=== PATIENT | female | born 2000 | race Caucasian/White ===

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

== ENCOUNTER 2021-06-06 19:26 | Emergency (ER) | payer SELFPAY ==
[~2021-06-06] VITALS: Ht 149.9 cm; Wt 41.7 kg
[2021-06-06 20:19] VITALS: BP 158/72
[2021-06-06] MEDS ORDERED: PRED20TA5 PO (22:13)
[2021-06-06] MEDS ORDERED: DIPH25TA53 PO (22:13)
[2021-06-06 22:19] VITALS: BP 158/72
--- NOTE | 2021-06-06 22:23 | NUR ---
Patient discharged with v/s stable. Written and verbal after care instructions given and explained. Patient alert, oriented and verbalized understanding of instructions. Ambulatory with steady gait. All questions addressed prior to discharge. ID band removed. Patient advised to follow up with PMD. Rx of DIPHENHYDRAMINE PREDISONE given. Patient educated on indication of medication including possible reaction and side effects. Opportunity to ask questions provided and answered.
== END 2021-06-06 22:23 | disposition home or self-care (01) ==
LOC: MED 19:26
DX: B08.1 Molluscum contagiosum (principal); F12.10 Cannabis abuse, uncomplicated
CPT/HCPCS: 81002; 81025; 99283

== ENCOUNTER 2021-07-14 20:20 | Emergency (ER) | payer MEDICAID ==
[~2021-07-14] VITALS: Ht 149.9 cm; Wt 44.5 kg
[~2021-07-14 20:20] MED LIST: DIPH25TA53 PO; PRED20TA5 PO
[2021-07-14 20:45] VITALS: BP 134/68
[2021-07-14] MEDS ORDERED: ALBUTEROL SULFATE/IPRATROPIU 3 ML SOL IH ONE (22:20)
--- NOTE | 2021-07-14 23:08 | NUR ---
PATIENT AMBULATED TO THE BATHROOM FOR URINE COLLECTION
[2021-07-14] MEDS ORDERED: predniSONE 20 MG TAB PO ONE (23:20)
[2021-07-15] MEDS ORDERED: PRED20TA5 PO (00:34)
[2021-07-15] MEDS ORDERED: ALBU-118 INH (00:34)
[2021-07-15 00:58] VITALS: BP 134/68
--- NOTE | 2021-07-15 00:58 | NUR ---
Patient discharged with v/s stable. Written and verbal after care instructions given and explained. Patient verbalized understanding. Ambulatory with steady gait. All questions addressed prior to discharge. Advised to follow up with PMD.
== END 2021-07-15 00:38 | disposition home or self-care (01) ==
LOC: MED 20:20
DX: J45.901 Unspecified asthma with (acute) exacerbation (principal); Z79.899 Other long term (current) drug therapy
CPT/HCPCS: 71045; 81025; 94640; 99283; J7512

== ENCOUNTER 2021-07-18 20:48 | Emergency (ER) | payer MEDICAID ==
[~2021-07-18] VITALS: Ht 149.9 cm; Wt 43.1 kg
[~2021-07-18 20:48] MED LIST changes: +ALBU-118 INH
[2021-07-18 21:00] VITALS: BP 108/65
[2021-07-18] MEDS ORDERED: GUAI-791 PO (23:07)
--- NOTE | 2021-07-18 23:12 | NUR ---
PT EXAMINED AND CLEARED FOR DISCHARGE BY DR. ANDRES; NO NURSING INTERVENTIONS PROVIDED. RX OF MUCINEX GIVEN. PT AMBULATORY TO PERSONAL VEHICLE. PT LEFT FACILITY AT THIS TIME.
== END 2021-07-18 23:12 | disposition home or self-care (01) ==
LOC: MED 20:48
DX: J45.901 Unspecified asthma with (acute) exacerbation (principal); Z79.899 Other long term (current) drug therapy; Z79.51 Long term (current) use of inhaled steroids
CPT/HCPCS: 71045; 99283

== ENCOUNTER 2022-01-06 09:56 | Emergency (ER) | payer MEDICAID, OTHER ==
[~2022-01-06] VITALS: Ht 149.9 cm; Wt 41.1 kg
[~2022-01-06 09:56] MED LIST changes: +GUAI-791 PO
[2022-01-06 10:26] VITALS: BP 136/93
[2022-01-06] MEDS ORDERED: FLUORESCEIN OPTH STRIP 1 MG OP ONE (12:15)
[2022-01-06] MEDS ORDERED: TETRACAINE HCL/PF 0.5% OPTH 4 ML BTL OP ONE (12:15)
[2022-01-06] MEDS ORDERED: AMOX1TAB8 PO (13:01)
[2022-01-06] MEDS ORDERED: PRED20TA5 PO (13:01)
[2022-01-06] MEDS ORDERED: CEPH-588 PO (13:01)
[2022-01-06] MEDS ORDERED: MUPI1OIN TP (13:01)
[2022-01-06] MEDS ORDERED: DIPH25TA53 PO (13:01)
[2022-01-06] MEDS ORDERED: CHLO473S62 PO (13:09)
--- NOTE | 2022-01-06 13:13 | NUR ---
pt c/o rash to body x2 days. c/o pain and itching.
[2022-01-06 13:54] VITALS: BP 106/80
== END 2022-01-06 13:54 | disposition home or self-care (01) ==
LOC: MED 09:56
DX: L30.9 Dermatitis, unspecified (principal); R21 Rash and other nonspecific skin eruption; K05.6 Periodontal disease, unspecified; J45.909 Unspecified asthma, uncomplicated; Z91.013 Allergy to seafood
CPT/HCPCS: 99283

== ENCOUNTER 2022-01-08 08:26 | Emergency (ER) | payer OTHER ==
[~2022-01-08] VITALS: Ht 149.9 cm; Wt 41.3 kg
[~2022-01-08 08:26] MED LIST changes: +AMOX1TAB8 PO; +CEPH-588 PO; +CHLO473S62 PO; +MUPI1OIN TP
[2022-01-08 08:37] VITALS: BP 130/88
--- NOTE | 2022-01-08 08:45 | NUR ---
Patient ambulated to bed 11 with steady/even gait
--- NOTE | 2022-01-08 08:50 | NUR ---
/ C/O RASH TO FACE AND NECK SINCE SUNDAY. PATIENT STATE SYMPTOMS BEGAN TO NECK AND PROGRESSIVELY WORSEN. STATES PAIN /, BURNING/CONSTANT, RADIATING TO FACE. REPORTS SEEN HERE ON SUNDAY AND PRESCRIBED ANTIBIOTICS WITHOUT RELIEF TO SYMPTOMS. PT STATES SYMPTOMS SPREAD TO FACIAL REGION SINCE SUNDAY. DENIES COLD-LIKE SYMPTOMS, ITCHINESS, HEADACHE, FEVER, CHILLS, MUSCLE ACHES, BACK PAIN, FATIGUE. COMPLAINT WITH PRESCRIBED MEDS. BED LOCKED IN LOWEST POSITION, SIDE RAILS X 1. PMH: ASTHMA MEDS: KEFLEX, AMOXICILLIN, BENADRYL, MUPRIOCIN, PREDNISONE NKDA
--- NOTE | 2022-01-08 09:07 | NUR ---
Patient moved via rney to Bed1, for isolation precautions per Dr. Capps.
[2022-01-08] MEDS ORDERED: VALA1TAB2 PO (09:37)
[2022-01-08] MEDS ORDERED: MUPI2CRE22 TP (09:37)
--- NOTE | 2022-01-08 10:00 | NUR ---
Dr. Capps is reevaluating pt at bedside
--- NOTE | 2022-01-08 10:05 | NUR ---
HSV culture handed to CPT in lab.
--- NOTE | 2022-01-08 10:10 | NUR ---
Patient discharged with v/s stable. Written and verbal after care instructions given and explained. Patient alert, oriented and verbalized understanding of instructions. Ambulatory with steady gait. All questions addressed prior to discharge. ID band removed. Patient advised to follow up with PMD. Rx of Mupirocin, Valtrex given. Patient educated on indication of medication including possible reaction and side effects. Opportunity to ask questions provided and answered. Work/school note provided.
== END 2022-01-08 10:10 | disposition home or self-care (01) ==
LOC: MED 08:26
DX: B00.0 Eczema herpeticum (principal); J45.909 Unspecified asthma, uncomplicated; Z91.013 Allergy to seafood
CPT/HCPCS: 36415; 87252; 99283